=== PATIENT | female | born 1995 | race Caucasian/White ===

== ENCOUNTER 2022-08-17 12:53 | Emergency (ER) | payer BC ==
[~2022-08-17] VITALS: Ht 160 cm; Wt 57.1 kg
[2022-08-17 13:03] VITALS: BP 118/86
[2022-08-17] MEDS ORDERED: CEPH500 PO (14:17)
== END 2022-08-17 14:34 | disposition home or self-care (01) ==
LOC: ER 12:53
DX: S62.634A Displaced fracture of distal phalanx of right ring finger, initial encounter for closed fracture (principal); W23.0XXA Caught, crushed, jammed, or pinched between moving objects, initial encounter; Z88.0 Allergy status to penicillin; Z88.2 Allergy status to sulfonamides; Z91.040 Latex allergy status
CPT/HCPCS: 73140; A9270

== ENCOUNTER → 2023-08-09 | Outpatient (CLI) | payer BC ==
[~2023-08-09] MED LIST: CEPH500 PO
[2023-08-12 11:23] LABS: APTIMA MEDIA TYPE Urine; C. TRACHOMATIS BY TMA Negative (Negative); N. GONORRHOEAE BY TMA Negative (Negative); SPECIMEN SOURCE Urine
== END ==
LOC: LAB 13:55 → LAB SHORT 13:55
PROVIDERS: Family Medicine
DX: Z34.01 Encounter for supervision of normal first pregnancy, first trimester (principal)
CPT/HCPCS: 87086; 87491; 87591

== ENCOUNTER → 2024-01-06 | Outpatient (CLI) | payer OTHER | END | disposition home or self-care (01) | LOC: LAB 17:03 → LAB SHORT 17:03 | DX: Z34.03 Encounter for supervision of normal first pregnancy, third trimester (principal) | CPT/HCPCS: 87081; 87150 ==

== ENCOUNTER 2024-02-03 01:04 | Inpatient (IN) | payer OTHER ==
[~2024-02-03] VITALS: Ht 160 cm; Wt 86.0 kg
[2024-02-03] VITALS (24 sets, daily range): BP systolic 99–151; BP diastolic 55–88
[2024-02-03] MEDS ORDERED: Ondansetron HCl 2 MG / ML 2ML Vial IV PRN (01:40)
[2024-02-03] MEDS ORDERED: Calcium Carbonate 500 MG Tab Chew PO PRN (01:40)
[2024-02-03] MEDS ORDERED: Methylergonovine Maleate 0.2MG / ML 1ML Amp IM PRN (01:40)
[2024-02-03] MEDS ORDERED: Lactated Ringer's 1,000 ML IV PRN (01:40)
[2024-02-03] MEDS ORDERED: Acetaminophen 500 MG Tab PO PRN (01:40)
[2024-02-03] MEDS ORDERED: Oxytocin 10 Unit / ML Vial IM PRN (01:40)
[2024-02-03] MEDS ORDERED: Misoprostol 200 MCG Tab PR PRN (01:40)
[2024-02-03] MEDS ORDERED: ePHEDrine Sulfate 50 MG/ML 1ML Injection XX PRN (01:40)
[2024-02-03] MEDS ORDERED: Lactated Ringer's 1,000 ML IV SCH ×2 (01:40)
[2024-02-03] MEDS ORDERED: FentaNYL 2mcg/ml-Bup 0.1% Epd 250 ML EPI PRN (01:40)
[2024-02-03] MEDS ORDERED: OXYTOCIN/RINGER'S LACTATE 500 ML IV PRN (01:40)
[2024-02-03] MEDS ORDERED: Carboprost Tromethamine 250 MCG/ML 1ML Amp IM PRN (01:40)
[2024-02-03] MEDS ORDERED: Tranexamic Acid 100 ML IV SCH (01:40)
[2024-02-03] MEDS ORDERED: Misoprostol 200 MCG Tab BC PRN (01:40)
[2024-02-03 02:17] LABS: BASOPHILS ABSOLUTE AUTO 0.04 K/mm3 (0.00-0.23); BASOPHILS PERCENT AUTO 0 % (0-2); EOSINOPHILS ABSOLUTE AUTO 0.04 K/mm3 (0.00-0.68); EOSINOPHILS PERCENT AUTO 0 % (0-6); Hematocrit 30.9 % (33.0-51.0); IMMATURE GRAN ABSOLUTE AUTO 0.19 K/mm3 (0.00-0.10); IMMATURE GRAN PERCENT AUTO 1 % (0-1); LYMPHOCYTES ABSOLUTE AUTO 1.89 K/mm3 (0.84-5.20); LYMPHOCYTES PERCENT AUTO 11 % (21-46); MONOCYTES ABSOLUTE AUTO 1.51 K/mm3 (0.16-1.47); MONOCYTES PERCENT AUTO 9 % (4-13); Mean Corpuscular HGB 24.7 pg (26.0-34.0); Mean Corpuscular HGB Conc 32.4 g/dL (31.5-36.5); Mean Corpuscular Volume 76 fL (80-100); Mean Platelet Volume 10.1 fL (9.1-12.4); NEUTROPHILS ABSOLUTE AUTO 13.09 K/mm3 (1.96-9.15); NEUTROPHILS PERCENT AUTO 78 % (41-73); NRBC ABSOLUTE 0.02 K/mm3 (0.00-0.02); NRBC Auto 0.1 /100 WBC (0.0-0.2); Platelet Count 344 K/mm3 (150-400); RDW Coefficient Variation 15.1 % (11.7-14.2); RDW Standard Deviation 41.1 fL (35.1-46.3); Red Blood Cell Count 4.05 M/mm3 (3.80-5.20); White Blood Cell Count 16.76 K/mm3 (4.00-11.30)
[2024-02-03] MEDS ORDERED: Vancomycin HCL 1,750 MG in NS 500 ML IV SCH (02:30)
[2024-02-03] MEDS ORDERED: BUPR75 PO (06:41)
[2024-02-03] MEDS ORDERED: SERT100 PO ×2 (06:42→10:31)
[2024-02-03] MEDS ORDERED: BUPR150ER PO (10:33)
[2024-02-04] VITALS (12 sets, daily range): BP systolic 106–161; BP diastolic 57–77
[2024-02-04] MEDS ORDERED: Zolpidem Tartrate 5 MG Tab PO PRN (00:20)
[2024-02-04] MEDS ORDERED: Ibuprofen 400 MG Tab PO PRN (00:20)
[2024-02-04] MEDS ORDERED: Lactated Ringer's 1,000 ML IV SCH (00:20)
[2024-02-04] MEDS ORDERED: FLU VACC TS2024-25(6MOS UP)/PF 45 MCG/0.5 ML SYRINGE IM ONE (00:25)
[2024-02-04] MEDS ORDERED: Witch Hazel/Glycerin PADS TOP PRN (00:25)
[2024-02-04] MEDS ORDERED: OxyCODONE 5 mg/Acetamin 325 mg TABLET PO PRN (00:25)
[2024-02-04] MEDS ORDERED: Carboprost Tromethamine 250 MCG/ML 1ML Amp IM PRN (00:25)
[2024-02-04] MEDS ORDERED: Docusate Sodium 100 MG Cap PO PRN (00:25)
[2024-02-04] MEDS ORDERED: Benzocaine Topical Anesthetic Spray 60GM TOP PRN ×2 (00:25→01:20)
[2024-02-04] MEDS ORDERED: Misoprostol 200 MCG Tab PR PRN (00:25)
[2024-02-04] MEDS ORDERED: Methylergonovine Maleate 0.2MG / ML 1ML Amp IM PRN (00:30)
[2024-02-04] MEDS ORDERED: Misoprostol 100 MCG Tab PO PRN (00:30)
[2024-02-04] MEDS ORDERED: Acetaminophen 325 MG TABLET PO PRN (00:30)
[2024-02-04] MEDS ORDERED: Misoprostol 200 MCG Tab BC PRN (00:40)
[2024-02-04] MEDS ORDERED: Ketorolac Tromethamine 30mg Vial IV PRN (01:00)
[2024-02-04] MEDS ORDERED: Ketorolac Tromethamine 30mg Vial IV SCH (06:00)
[2024-02-04] MEDS ORDERED: Prenatal Vit/FE Fumarate/FA 1 Tab PO SCH (09:00)
[2024-02-04] MEDS ORDERED: Sertraline HCl 100 MG Tab PO SCH (09:00)
[2024-02-04] MEDS ORDERED: buPROPion HCL 150 MG TAB.SR.12H PO SCH (09:00)
--- NOTE | 2024-02-04 11:14 | NUR ---
pt parents are coming down from [place], they want to make it a short visit, so pt will mention that she is really painful. and we will ask then to leave so we can medicate out pt so she can sleep.
--- NOTE | 2024-02-04 14:14 | NUR ---
has paper work at bedside, lucynt filled it out, has been reminded, reports willdo it, currently watching fob sleep with baby in his arms, she is awake watching, but aware it is dangerous and SIDS explained to mom. she reports she will continue to watch them sleep. she is aware co sleeping isnt allowed at the hospital. but reports will continue to stay awake and watch baby and dad sleep.
--- NOTE | 2024-02-04 15:05 | NUR ---
PT REPORTS DOING GOOD. CONTINUES TO SIT NEXT TO BED WHILE DAD IS SLEEPING HOLDING BABY, IS CONTINUES TO BE AWARE THIS IS NOT APPROVED BY THE HOSPITAL POLICY, SHE IS ON HER PHONE WATCHING DAD AND BABY
[2024-02-05 05:37] VITALS: BP 108/62
[2024-02-05 06:38] LABS: BASOPHILS ABSOLUTE AUTO 0.09 K/mm3 (0.00-0.23); BASOPHILS PERCENT AUTO 1 % (0-2); EOSINOPHILS ABSOLUTE AUTO 0.18 K/mm3 (0.00-0.68); EOSINOPHILS PERCENT AUTO 1 % (0-6); Hematocrit 25.6 % (33.0-51.0); Hemoglobin 7.9 g/dL (11.5-16.0); IMMATURE GRAN ABSOLUTE AUTO 0.24 K/mm3 (0.00-0.10); IMMATURE GRAN PERCENT AUTO 1 % (0-1); LYMPHOCYTES ABSOLUTE AUTO 3.02 K/mm3 (0.84-5.20); LYMPHOCYTES PERCENT AUTO 16 % (21-46); MONOCYTES ABSOLUTE AUTO 1.54 K/mm3 (0.16-1.47); MONOCYTES PERCENT AUTO 8 % (4-13); Mean Corpuscular HGB 24.7 pg (26.0-34.0); Mean Corpuscular HGB Conc 30.9 g/dL (31.5-36.5); Mean Corpuscular Volume 80 fL (80-100); Mean Platelet Volume 9.7 fL (9.1-12.4); NEUTROPHILS ABSOLUTE AUTO 14.22 K/mm3 (1.96-9.15); NEUTROPHILS PERCENT AUTO 74 % (41-73); Platelet Count 299 K/mm3 (150-400); RDW Coefficient Variation 15.8 % (11.7-14.2); RDW Standard Deviation 45.2 fL (35.1-46.3); White Blood Cell Count 19.29 K/mm3 (4.00-11.30)
[2024-02-05 08:46] VITALS: BP 130/70
[2024-02-05] MEDS ORDERED: IBUP800 PO (09:48)
[2024-02-05] MEDS ORDERED: ACET500 PO (09:48)
[2024-02-05] MEDS ORDERED: PRENATAL TABLE1 EAC2 PO (09:48)
[2024-02-05 12:10] VITALS: BP 128/79
--- NOTE | 2024-02-05 12:38 | NUR ---
PT MET WITH JOE FROM [facility] REGARDING SCORE OF 10 ON HER EPDS FORM. JOE REPORTS THAT HE PROVIDED PT WITH RESOURCES, AND THAT SHE IS ALREADY IN THERAPY. NO OTHER FINDINGS. DR BEE NOTIFIED BY RN AND HAS PT SCHEDULED TO BE SEEN IN OFFICE WITHIN TWO WEEKS. PT EXPRESSED UNDERSTANDING AND VERBALIZED THAT SHE HAS NO CONCERNS AT THIS TIME REGARDING PPD OR PPA.
== END 2024-02-05 12:12 | disposition home or self-care (01) | DRG 806 ==
LOC: OBS 01:04 → BC 01:07 → OBS 01:15 → BC 01:34
PROVIDERS: Advanced Practice Midwife; ADMIT Family Medicine
PROC: 10E0XZZ Delivery of Products of Conception, External Approach (ICD-10-PCS; principal; 2024-02-04)
PROC: 0KQM0ZZ Repair Perineum Muscle, Open Approach (ICD-10-PCS; 2024-02-04)
PROC: 10907ZC Drainage of Amniotic Fluid, Therapeutic from Products of Conception, Via Natural or Artificial Opening (ICD-10-PCS; 2024-02-04)
PROC: 3E0R3BZ Introduction of Anesthetic Agent into Spinal Canal, Percutaneous Approach (ICD-10-PCS; 2024-02-04)
PROC: 00HU33Z Insertion of Infusion Device into Spinal Canal, Percutaneous Approach (ICD-10-PCS; 2024-02-04)
DX: O48.0 Post-term pregnancy (principal); O47.1 False labor at or after 37 completed weeks of gestation; Z37.0 Single live birth; Z3A.40 40 weeks gestation of pregnancy; Z88.0 Allergy status to penicillin; Z88.2 Allergy status to sulfonamides; Z91.040 Latex allergy status; Z79.899 Other long term (current) drug therapy; O70.1 Second degree perineal laceration during delivery
CPT/HCPCS: 36415; 51702; 59025; 85025; 86850; 86900; 86901; 86923; 99214; A9270; J1885; J2590; J3370; J7040; J7120

== ENCOUNTER → 2024-04-18 | Outpatient (CLI) | payer OTHER ==
[~2024-04-18] MED LIST changes: +ACET500 PO; +BUPR150ER PO; +BUPR75 PO; +IBUP800 PO; +PRENATAL TABLE1 EAC2 PO; +SERT100 PO
== END ==
LOC: LAB 17:56 → LAB SHORT 17:56
DX: R30.0 Dysuria (principal)
CPT/HCPCS: 87077; 87086; 87186

== ENCOUNTER → 2024-06-29 | Outpatient (CLI) | payer OTHER ==
[2024-07-12 06:08] LABS: HPV HIGH RISK BY TMA Not Detected; HPV SOURCE Cervical
== END | disposition home or self-care (01) ==
LOC: LAB SHORT 11:38 → LAB 11:38
PROVIDERS: Family Medicine
DX: Z12.4 Encounter for screening for malignant neoplasm of cervix (principal)
CPT/HCPCS: 87624; G0123